=== PATIENT | female | born 1945 | race Caucasian/White ===

== ENCOUNTER 2021-12-24 08:51 | Day surgery (SDC) | payer MEDICARE, SELFPAY ==
[2021-12-24 09:15] VITALS: BP 161/66; PULSE 55; RESP 16; TEMP 36.4; O2SAT 99
[2021-12-24] MEDS: Tropicam./Phenyleph. (1/2.5%) 5 ML BTL OD ×3 (09:23→09:38)
--- NOTE | 2021-12-24 09:36 | ANES.PREOP_ITS ---
General Info Date of Service Date Performed: 12/24/21 Height: 5 ft 5 in Weight: 50 kg Body Mass Index (BMI): 18.3 Surgical Procedure: Operation Date: 12/24/21 11:40 Proposed Procedure Side Surgeon p Cataract Extraction with IOL Implant Right Javi Wayne MD Meds Allergies and Home Medications Allergies Allergy/AdvReac Type Severity Reaction Status Date / Time No Known Allergies Allergy Unverified 12/24/21 09:27 Home Medication Medication Instructions Recorded ascorbic acid (vitamin C) 1,000 mg 1 tab PO DAILY 08/10/14 tablet black cohosh root extract 40 mg 1 tab PO BID 08/10/14 capsule magnesium 250 mg tablet 250 mg PO DAILY 08/10/14 ktgulnlfcmem-Jb-jvda-minerals 1 tab PO DAILY 08/10/14 (Multiple Vitamin, Womens tablet) omega-3 fatty acids 500 mg capsule 1 tab PO DAILY 08/10/14 (Fish Oil) Lactobacillus acidophilus (Freeze 1 cap PO DAILY 08/02/15 Dried Acidophilus capsule) Cbd Oil 1 appful topical PRN PRN 12/21/21 pravastatin 10 mg tablet 1 tab PO DAILY 12/21/21 Current Visit Medications: Current Medications Generic Name Dose Route Start Last Admin Trade Name Freq PRN Reason Stop Dose Admin Acetaminophen 1,000 mg 12/24/21 06:00 Acetaminophen 500 Mg Tab PO Q4H PRN PRN Miscellaneous Medication 0 ml 12/24/21 06:00 Prednisolone 1%, Moxifloxacin 0.5%, Nepafenac 0.1% 5ml Btl OD DIRECTED [facility] Miscellaneous Medication 0 ml 12/24/21 06:00 12/24/21 09:23 Tropicam./Phenyleph. (1/2.5%) 5 Ml Btl OD 1 drp DIRECTED LEO Administration Tetracaine HCl 0 ml 12/24/21 06:00 Tetracaine 0.5% 4 Ml Btl OD DIRECTED [facility] Medical History Medical History Disorder of stomach Epigastric pain Hemorrhage of rectum and anus HLD (hyperlipidemia) Joint pain in fingers of right hand Neck pain Pain in left shoulder Spondylosis Surgical History Surgical History (Updated 12/24/21 @ 09:26 by Patito Bravo) Abdominal hysterectomy bunionectomy EGD - MAC History of back surgery History of radiofrequency ablation (RFA) of nerve of cervical spine Hx laparoscopic cholecystectomy Hx of colonoscopy Hx of esophagogastroduodenoscopy Oophrectomy, Left Tobacco Smoking/Tobacco Use Status: Never Alcohol Alcohol Intake: current Alcohol intake frequency: holidays/special occasions only Substance Use Substance use: Never Substance use type: does not use Vital Signs and Lab Results Vital Signs Most Recent Vital Signs in EMR: Most Recent Vital Signs Temp Pulse Resp BP Pulse Ox 36.4 C L 55 L 16 161/66 H 99 12/24/21 09:15 12/24/21 09:15 12/24/21 09:15 12/24/21 09:15 12/24/21 09:15 Lab Results Blood Type / Crossmatch: No Data to Display Complete Blood Count: No Data to Display Complete Metabolic Panel: No Data to Display Liver Function Panel: No Data to Display Coagulation Panel: No Data to Display Cardiac Panel: No Data to Display Arterial Blood Gas: No Data to Display Venous Blood Gas: No Data to Display Pancreas Panel: No Data to Display Thyroid Panel: No Data to Display Infectious Disease: No Data to Display Blood Cultures: 2 No Data to Display Toxicology Panel: No Data to Display Anesthesia Assessment and Plan Anesthesia History Personal History: No History of Anesthesia Complications Family History: No Family History of Anesthesia Complications Exercise Tolerance Exercise Tolerance: Metabolic Equivalents>4 Pertinent Negatives Pertinent Negatives: No Symptoms of GERD Cardiac & Pulmonary Exam Cardiac Exam: Normal S1/S2 Heart Sounds Pulmonary Exam: Clear Bilateral Breath Sounds Implantable Cardiac Device Does patient have a Pacemaker or an ICD?: No Airway Exam Known Difficult Airway: No Mallampati Class: 1 Mouth Opening: Normal (> 3cm) Thyromental Distance: Greater than 3 cm Neck Range of Motion: Full ROM Neck Circumference: Normal Teeth Condition: Removable Dentures/Plates Upper and Removable Dentures/Plates Lower ASA Classification ASA Score: ASA 2 Emergency Case?: No NPO Status NPO Status: NPO Clears >2 hours, Solids >8 hours Anesthesia Plan Resuscitation Status: Full Code Anesthesia Technique: MAC Anesthesia Airway Planned: Natural Airway Monitors Used: Standard Monitors
[2021-12-24 09:38] VITALS: BMI 18.3
[2021-12-24] MEDS: Lidocaine 2% Jelly 6 ML SYR (10:21)
[2021-12-24] MEDS: Tetracaine 0.5% 4 ML BTL OD (10:21)
[2021-12-24] MEDS: Povidone-Iodine Ophth 30 ML BTL (10:21)
[2021-12-24] MEDS: Duovisc Viscoelastic System EACH 1 EACH (10:27)
[2021-12-24] MEDS: Balanced Salt Soln.-PLUS 500 ML BAG (10:31)
[2021-12-24 10:49] VITALS: BP 162/76; PULSE 55; RESP 16; TEMP 36.6; O2SAT 98
--- NOTE | 2021-12-24 10:50 | PDOC.DSDIS_ITS ---
Discharge Plan Disposition Patient Disposition: HOME Condition: Good Discharge Details Attending Provider: Javi Wayne Primary Care Provider: Mihai Buchanan [place] Meds and New Rx's Prescriptions: No Action ascorbic acid (vitamin C) 1,000 MG tablet 1 tab PO DAILY Label Comments: 08/22/15 Pt states no longer taking. PG Multiple Vitamin, Womens 1 EACH tablet 1 tab PO DAILY Fish Oil 500 MG capsule 1 tab PO DAILY black cohosh root extract 40 MG capsule 1 tab PO BID magnesium 250 MG tablet 250 mg PO DAILY Label Comments: 08/22/15 Pt states every other day. PG Freeze Dried Acidophilus 1 EACH capsule 1 cap PO DAILY pravastatin 10 mg tablet 1 tab PO DAILY Label Comments: TAKE 1 TABLET BY MOUTH ONCE DAILY FOR 90 DAYS Cbd Oil 1 appful topical PRN PRN Label Comments: joint pain Discharge Instructions Stand Alone Forms: Post-op Topical Cataract, Arnaldo Cummings (DSU) Discharge Orders Discharge Orders: Discharge Order (Routine); Ordered 12/24/21 Ordered By: Javi Wayne DS: Diagnosis Discharge Diagnosis (1) Cortical cataract of right eye: Status: Resolved (2) Nuclear sclerotic cataract of right eye: Status: Resolved
--- NOTE | 2021-12-24 10:51 | ROE_ITS ---
Date of service: 12/24/21 Time of Service: 10:51 Operative Note Operative Note DATE OF PROCEDURE: 12/24/21 PRE-OP DIAGNOSIS: Nuclear/cortical cataract, right eye POST-OP DIAGNOSIS: same PROCEDURE: Cataract extraction using phacoemulsification with intraocular lens implant, right eye SURGEON: Javi Wayne ANESTHESIA TYPE: Local By Surgeon and MAC Refer to Anesthesia Record ESTIMATED BLOOD LOSS: 0 PATHOLOGY: none sent COMPLICATIONS: None Patient was transported to: same day Patient's condition: stable Implants: Víctor & Víctor/BENITA Tecnis [id number] Indications: Progressive visual loss due to cataract, right eye Procedure Description: CATARACT SURGERY OPERATIVE REPORT PREOPERATIVE DIAGNOSIS: 1. Nuclear/cortical cataract, right eye POSTOPERATIVE DIAGNOSIS: Same OPERATION: 1. Cataract extraction using phacoemulsification with posterior chamber intraocular lens implant, right eye. IOL: IOL Post Manager/Model: Víctor & Víctor / BENITA Tecnis [id number] IOL Power: + 23.5 diopters IOL Serial Number: [id number] Optic Diameter: 6.0mm Haptic/Overall Diameter: 13.0mm PHACO INFO: [employer]urion Vision System with OZil and Active Fluidics Cumulative Dispersed Energy (CDE): 13.75 seconds SURGEON: Javi Wayne MD, GLEN ANESTHESIA: Monitored Anesthesia Care (MAC), with local sub-tenon's anesthetic infiltration COMPLICATIONS: None SPECIMENS: None INDICATIONS FOR PROCEDURE: The patient is a 76-year-old lady with history of diminished visual acuity in her right eye secondary to the development of significant nuclear and cortical cataract. She is significantly symptomatic that she desires cataract surgery and attempt to improve and maximize her vision. PROCEDURE: The correct surgical eye was identified and marked as the right eye and the pupil was dilated in the preoperative area using mydriatics and c ycloplegics. The dilated pupil size was seven-point mm. The patient elected to proceed without oral sedation. The patient was brought to the operating room where cardiopulmonary monitoring was instituted and surgical time-out was performed, confirming the correct operative eye and IOL power. Topical anesthesia was administered and ophthalmic povidone-iodine 5% was instilled into the conjunctival fornices. Lidocaine gel was applied to the cornea and the jamal-ocular area was prepped with Betadine 10% solution and draped in the usual sterile fashion for intraocular surgery, including an ap erture drape. A Tegaderm transparent film dressing was cut in half and used to cover the lashes and lid margins. Care was taken to sequester the lashes and lid margins under the Tegaderm dressing. A lid speculum was placed between the lids of the operative eye and the Jose [employer] operating microscope was maneuvered into position. Domonique scissors were then used to make a conjunctival buttonhole approximately 6mm posterior to the limbus in the inferonasal quadrant. Blunt dissection was carried out to expose bare sclera, and a blunt-tipped sub-tenon?s anesthesia cannula was introduced and passed posteriorly along the globe where non- preserved plain lidocaine was injected into posterior sub-Tenon?s space. A sideport knife was used to make a paracentesis port inferotemporally. I ntraocular phenylephrine/lidocaine was injected into the anterior chamber. The anterior chamber was filled with viscoelastic. Viscoat was used due to the shallow anterior chamber. A keratome knife was used to construct a 2-plane near-clear corneal tunnel extending 2.0mm into clear cornea superiortemporally. A flap was raised on the anterior capsule and capsulorhexis forceps were used to complete a continuous curvilinear capsulorhexis of 5.0 mm. Balanced salt solution was then used to perform cortical cleaving hydrodissection and nuclear hydrodelineation until the lens could be freely rot ated within the capsular bag. The lens nucleus was then disassembled and removed within the capsular bag and iris plane using phacoemulsification. Residual cortical material was removed using the I/A handpiece. The posterior capsule was carefully polished to remove as much residual lens epithelial cells as safely possible. The capsular bag was then inflated and the anterior chamber deepened with viscoelastic. The lens implant described above was inserted into the capsular bag using the BENITA [place] Injector. A Kuglen hook was used to dial the IOL into position. Residual viscoelastic was then removed first from posterior to the IOL, then from the anterior chamber using the I/A handpiece. The lens implant was noted to center nicely within the capsular bag. The incisions were stromally hydrated, and the anterior chamber was reformed using BSS. Then 0.5cc of moxifloxacin 1.0mg/ml were injected into the capsular bag and anterior chamber. The incisions were checked with a Weck spear and found to be secure. Several drops of ophthalmic povidone-iodine 5% were then applied to the eye followed by two drops of Imprimis combination prednisolone/moxifloxacin/nepafenac solution. The drapes were removed and a clear plastic protective eye shield was placed over the eye. The patient was then returned to Same Day Surgery in stable condition.
--- NOTE | 2021-12-24 11:16 | W.ANESPOSTOP ---
Postoperative Evaluation Date, Time and Location Date Performed: 12/24/21 Time Performed: 11:00 Patient Location: Day Surgery Unit Vital Signs Most Recent Imported Vital Signs: Most Recent Vital Signs Temp Pulse Resp BP Pulse Ox 36.6 C 55 L 16 162/76 H 98 12/24/21 10:49 12/24/21 10:49 12/24/21 10:49 12/24/21 10:49 12/24/21 10:49 Pain Score Most Recent Pain Score: Most Recent Pain Score Pain Level 2 12/24/21 10:49 Assessment Mental Status: Awake (Alert & Oriented to Patient Baseline) Airway and Respiratory Function: Patent airway with normal (patient baseline) respiratory exam Cardiovascular Function: Hemodynamically Stable Hydration Status: Adequately Hydrated Nausea & Vomiting: No Nausea or Vomiting Pain: Pt. Denies Any Pain Peripheral Nerve Block: Patient did not receive a nerve block
== END 2021-12-24 11:08 | disposition home or self-care (01) ==
LOC: SUR 08:52
PROVIDERS: PCP Neuromusculoskeletal Medicine & OMM; Visit Provider Ophthalmology
PROC: (CPT 66984; principal; 2021-12-24 11:30)
DX: H25.11 Age-related nuclear cataract, right eye (principal)
CPT/HCPCS: 66984; V2632

== ENCOUNTER 2022-01-07 08:50 | Day surgery (SDC) | payer MEDICARE, SELFPAY ==
[2022-01-07 09:10] VITALS: BP 159/80; PULSE 57; RESP 16; TEMP 36.3; O2SAT 99
[2022-01-07] MEDS: Tropicam./Phenyleph. (1/2.5%) 5 ML BTL OS ×3 (09:26→09:36)
--- NOTE | 2022-01-07 10:01 | W.ANESPRE ---
General Info Date of Service Date Performed: 01/07/22 Height: 5 ft 5 in Weight: 49.3 kg Body Mass Index (BMI): 18.1 Surgical Procedure: Operation Date: 01/07/22 11:40 Proposed Procedure Side Surgeon p Cataract Extraction with IOL Implant Left Javi Wayne MD Meds Allergies and Home Medications Allergies Allergy/AdvReac Type Severity Reaction Status Date / Time No Known Allergies Allergy Unverified 01/04/22 09:28 Home Medication Medication Instructions Recorded ascorbic acid (vitamin C) 1,000 mg 1 tab PO DAILY 08/10/14 tablet black cohosh root extract 40 mg 1 tab PO BID 08/10/14 capsule magnesium 250 mg tablet 250 mg PO DAILY 08/10/14 ozvrakohixwe-Gi-ecby-minerals 1 tab PO DAILY 08/10/14 (Multiple Vitamin, Womens tablet) omega-3 fatty acids 500 mg capsule 1 tab PO DAILY 08/10/14 (Fish Oil) Cbd Oil 1 appful topical PRN PRN 12/21/21 pravastatin 10 mg tablet 1 tab PO DAILY 12/21/21 Current Visit Medications: Current Medications Generic Name Dose Route Start Last Admin Trade Name Freq PRN Reason Stop Dose Admin Acetaminophen 1,000 mg 01/07/22 06:00 Acetaminophen 500 Mg Tab PO Q4H PRN PRN Miscellaneous Medication 0 ml 01/07/22 06:00 Prednisolone 1%, Moxifloxacin 0.5%, Nepafenac 0.1% 5ml Btl OS DIRECTED LEO Miscellaneous Medication 0 ml 01/07/22 06:00 01/07/22 09:36 Tropicam./Phenyleph. (1/2.5%) 5 Ml Btl OS 1 drp DIRECTED LEO Administration Tetracaine HCl 0 ml 01/07/22 06:00 Tetracaine 0.5% 4 Ml Btl OS DIRECTED ELO PFSH Active Problems Active Problems: Problem Status Onset Code Nuclear sclerotic cataract of right eye H25.11 Cortical cataract of right eye H26.9 Medical History Medical History Disorder of stomach Epigastric pain Hemorrhage of rectum and anus HLD (hyperlipidemia) Joint pain in fingers of right hand Neck pain Pain in left shoulder Spondylosis Surgical History Surgical History Abdominal hysterectomy bunionectomy EGD - MAC History of back surgery History of radiofrequency ablation (RFA) of nerve of cervical spine Hx laparoscopic cholecystectomy Hx of colonoscopy Hx of esophagogastroduodenoscopy Oophrectomy, Left Tobacco Smoking/Tobacco Use Status: Never Alcohol Alcohol Intake: current Alcohol intake frequency: holidays/special occasions only Substance Use Substance use: Never Substance use type: does not use Vital Signs and Lab Results Vital Signs Most Recent Vital Signs in EMR: Most Recent Vital Signs Temp Pulse Resp BP Pulse Ox 36.3 C L 57 L 16 159/80 H 99 01/07/22 09:10 01/07/22 09:10 01/07/22 09:10 01/07/22 09:10 01/07/22 09:10 Lab Results Blood Type / Crossmatch: No Data to Display Complete Blood Count: No Data to Display Complete Metabolic Panel: No Data to Display Liver Function Panel: No Data to Display Coagulation Panel: No Data to Display Cardiac Panel: No Data to Display Arterial Blood Gas: No Data to Display Venous Blood Gas: No Data to Display Pancreas Panel: No Data to Display Thyroid Panel: No Data to Display Infectious Disease: No Data to Display Blood Cultures: No Data to Display Toxicology Panel: No Data to Display Anesthesia Assessment and Plan Anesthesia History Personal History: No History of Anesthesia Complications Family History: No Family History of Anesthesia Complications Exercise Tolerance Exercise Tolerance: Metabolic Equivalents>4 Cardiac & Pulmonary Exam Cardiac Exam: Normal S1/S2 Heart Sounds Pulmonary Exam: Clear Bilateral Breath Sounds Implantable Cardiac Device Does patient have a Pacemaker or an ICD?: No Airway Exam Known Difficult Airway: No Mallampati Class: 1 Mouth Opening: Normal (> 3cm) Thyromental Distance: Greater than 3 cm Neck Range of Motion: Full ROM Neck Circumference: Normal Teeth Condition: Removable Dentures/Plates Upper and Removable Dentures/Plates Lower ASA Classification ASA Score: ASA 2 Emergency Case?: No NPO Status NPO Status: NPO Clears >2 hours, Solids >8 hours Anesthesia Plan Resuscitation Status: Full Code Anesthesia Technique: MAC Anesthesia Airway Planned: Natural Airway Monitors Used: Standard Monitors
[2022-01-07 10:03] VITALS: BMI 18.1
[2022-01-07] MEDS: Tetracaine 0.5% 4 ML BTL OS (10:41)
[2022-01-07] MEDS: Balanced Salt Soln.-PLUS 500 ML BAG (10:42)
[2022-01-07] MEDS: Duovisc Viscoelastic System EACH 1 EACH (10:43)
[2022-01-07] MEDS: Lidocaine 2% Jelly 6 ML SYR (10:44)
[2022-01-07] MEDS: Povidone-Iodine Ophth 30 ML BTL (10:45)
--- NOTE | 2022-01-07 11:01 | PDOC.DSDIS_ITS ---
Discharge Plan Disposition Patient Disposition: HOME Condition: Good Discharge Details Attending Provider: Javi Wayne Primary Care Provider: Mihai Buchanan [place] Meds and New Rx's Prescriptions: No Action ascorbic acid (vitamin C) 1,000 MG tablet 1 tab PO DAILY Label Comments: 08/22/15 Pt states no longer taking. PG Multiple Vitamin, Womens 1 EACH tablet 1 tab PO DAILY Fish Oil 500 MG capsule 1 tab PO DAILY black cohosh root extract 40 MG capsule 1 tab PO BID magnesium 250 MG tablet 250 mg PO DAILY Label Comments: 08/22/15 Pt states every other day. PG pravastatin 10 mg tablet 1 tab PO DAILY Label Comments: TAKE 1 TABLET BY MOUTH ONCE DAILY FOR 90 DAYS Cbd Oil 1 appful topical PRN PRN Label Comments: joint pain Discharge Instructions Stand Alone Forms: Post-op Topical CataractArnaldo (DSU) Discharge Orders Discharge Orders: Discharge Order (Routine); Ordered 01/07/22 Ordered By: Javi Wayne DS: Diagnosis Discharge Diagnosis (1) Cortical cataract of left eye: Status: Resolved (2) Nuclear sclerotic cataract of left eye: Status: Resolved
[2022-01-07 11:02] VITALS: BP 154/72; PULSE 53; RESP 16; TEMP 36; O2SAT 100
--- NOTE | 2022-01-07 11:02 | W.PM.OP ---
Date of service: 01/07/22 Time of Service: 11:02 Operative Note Operative Note DATE OF PROCEDURE: 01/07/22 PRE-OP DIAGNOSIS: Nuclear/cortical cataract, left eye POST-OP DIAGNOSIS: same PROCEDURE: Cataract extraction using phacoemulsification with intraocular lens implant, left eye SURGEON: Javi Wayne ANESTHESIA TYPE: Local By Surgeon and MAC Refer to Anesthesia Record PATHOLOGY: none sent COMPLICATIONS: None Patient was transported to: same day Patient's condition: stable Implants: Víctor and Víctor / [employer] Tecnis [id number] Indications: Progressive decreased vision due to cataract, left eye Procedure Description: CATARACT SURGERY OPERATIVE REPORT PREOPERATIVE DIAGNOSIS: 1. Nuclear/cortical cataract, left eye POSTOPERATIVE DIAGNOSIS: Same OPERATION: 1. Cataract extraction using phacoemulsification with posterior chamber intraocular lens implant, left eye. IOL: IOL Certified Breastfeeding Educator/Model: Víctor & Víctor / BENITA Tecnis [id number] IOL Power: + 23.5 diopters IOL Serial Number: [id number] Optic Diameter: 6.0 mm Haptic/Overall Diameter: 13.0 mm PHACO INFO: [employer] Vision System with OZil and Active Fluidics Cumulative Dispersed Energy (CDE): 14.07 seconds SURGEON: Javi Wayne MD, GLEN ANESTHESIA: Monitored A [facility] (MAC), with local sub-tenon's anesthetic infiltration COMPLICATIONS: None SPECIMENS: None INDICATIONS FOR PROCEDURE: The patient is a 76-year-old lady with history of diminished visual acuity in both eyes secondary to development of bilateral nuclear/cortical cataract. She has already undergone cataract surgery in the right eye and is doing well postoperatively. She now presents for cataract surgery in the left eye. PROCEDURE: The correct surgical eye was identified and marked as the left eye and the pupil was dilated in the preoperative area using mydriatics and cycloplegics. The dilated pupil size was 6.5 mm. . The patient elected to proceed without oral sedation. The patient was brought to the operating room where cardiopulmonary monitoring was instituted and surgical time-out was performed, confirming the correct operative eye and IOL power. Topical anesthesia was administered and ophthalmic povidone-iodine 5% was instilled into the conjunctival fornices. Lidocaine gel was applied to the cornea and the jamal-ocular area was prepped with Betadine 10% solution and draped in the usual sterile fashion for intraocular surgery, including an aperture drape. A Tegaderm transparent film dressing was cut in half and used to cover the lashes and lid margins. Care was taken to sequester the lashes and lid margins under the Tegaderm dressing. A lid speculum was placed between the lids of the operative eye and the [employer] operating microscope was maneuvered into position. Domonique scissors were then used to make a conjunctival buttonhole approximately 6mm posterior to the limbus in the inferonasal quadrant. Blunt dissection was carried out to expose bare sclera, and a blunt-tipped sub-tenon?s anesthesia cannula was introduced and passed posteriorly along the globe where non-preserved plain lidocaine was injected into posterior sub-Tenon?s space. A sideport knife was used to make a paracentesis port superiorly/superiortemporally. Intraocular phenylephrine/lidocaine was injected int the anterior chamber.. The anterior chamber was filled with viscoelastic. A keratome knife was used to construct a 2-plane near-clear corneal tunnel extending 2.0mm into clear cornea temporally. A flap was raised on the anterior capsule and capsulorhexis forceps were used to complete a continuous curvilinear capsulorhexis of 5.0 mm. Balanced salt solution was then used to perform cortical cleaving hydrodissection and nuclear hydrodelineation until the lens could be freely rotated within the capsular bag. The lens nucleus was then disassembled and removed within the capsular bag and iris plane using phacoemulsification. Residual cortical material was removed using the 45-degree angled silicone I/A tip with 0.3mm port. The posterior capsule was carefully polished to remove as much residual lens epithelial cells as safely possible. The capsular bag was then inflated and the anterior chamber deepened with viscoelastic. The lens implant described above was inserted into the capsular bag using the BENITA [place] Injector. A Kuglen hook was used to dial the IOL into position. Residual viscoelastic was then removed first from posterior to the IOL, then from the anterior chamber using the I/A handpiece. The lens implant was noted to center nicely within the capsular bag. The incisions were stromally hydrated, and the anterior chamber was reformed using BSS. Then 0.5cc of moxifloxacin 1.0mg/ml were injected into the capsular bag and anterior chamber. The incisions were checked with a Weck spear and found to be secure. Several drops of ophthalmic povidone-iodine 5% were then applied to the eye followed by two drops of Imprimis combination prednisolone/moxifloxacin/nepafenac solution. The drapes were removed and a clear plastic protective eye shield was placed over the eye. The patient was then returned to Same Day Surgery in stable condition.
--- NOTE | 2022-01-07 13:44 | W.ANESPOSTOP ---
Postoperative Evaluation Date, Time and Location Date Performed: 01/07/22 Time Performed: 11:02 Patient Location: Day Surgery Unit Vital Signs Most Recent Imported Vital Signs: Most Recent Vital Signs Temp Pulse Resp BP Pulse Ox 36 C L 53 L 16 154/72 H 100 01/07/22 11:02 01/07/22 11:02 01/07/22 11:02 01/07/22 11:02 01/07/22 11:02 Pain Score Most Recent Pain Score: Most Recent Pain Score Pain Level 0 01/07/22 11:02 Assessment Mental Status: Awake (Alert & Oriented to Patient Baseline) Airway and Respiratory Function: Patent airway with normal (patient baseline) respiratory exam Cardiovascular Function: Hemodynamically Stable Hydration Status: Adequately Hydrated Nausea & Vomiting: No Nausea or Vomiting Pain: Pt. Denies Any Pain Peripheral Nerve Block: Patient did not receive a nerve block
== END 2022-01-07 11:15 | disposition home or self-care (01) ==
LOC: SUR 08:50
PROVIDERS: PCP Neuromusculoskeletal Medicine & OMM; Visit Provider Ophthalmology
PROC: (CPT 66984; principal; 2022-01-07 11:30)
DX: H25.12 Age-related nuclear cataract, left eye (principal); E78.5 Hyperlipidemia, unspecified
CPT/HCPCS: 66984; V2632